=== PATIENT | male | born 1975 | race Caucasian/White ===

== ENCOUNTER → 2023-06-20 11:55 | Outpatient (CLI) | payer BC, SELFPAY ==
[2023-06-20 16:48] LABS: Basophils # 0.1 K/mm3 (0-0.2); Basophils % 0.7 % (0.1-2.0); Eosinophils # 0.2 K/mm3 (0.0-0.4); Eosinophils % 3.3 % (0.1-12.0); Hemoglobin 16.2 g/dL (14.1-18.0); Lymphocytes # 1.6 K/mm3 (0.7-4.5); Lymphocytes % 25.1 % (10-50); Mean Corpuscular HGB Conc 34.5 g/dL (31.8-35.4); Mean Corpuscular Hemoglobin 31.4 pg (27.0-31.2); Mean Platelet Volume 11.2 fl (7.4-10.4); Monocytes # 0.3 K/mm3 (0.1-1.0); Monocytes % 5.1 % (1.7-9.3); Neutrophils # 4.1 K/mm3 (1.8-7.8); Neutrophils % 65.8 % (37.0-80.0); Platelet Count 149 K/mm3 (142-424); Red Blood Count 5.17 M/mm3 (4.60-6.20); Red Cell Distribution Width 12.9 % (11.5-17.5); White Blood Count 6.3 K/mm3 (4.8-10.8)
[2023-06-20 16:53] LABS: Chloride 106 mmol/L (98-107); Sodium 141 mmol/L (136-145)
[2023-06-20 16:54] LABS: Potassium 4.1 mmoL/L (3.5-5.1)
[2023-06-20 16:56] LABS: Alanine Aminotransferase 37 U/L (12-78); Albumin Level 4.2 g/dl (3.5-5.0); Albumin/Globulin Ratio 1.4 (1.1-1.8); Alkaline Phosphatase 62 U/L (38-126); Anion Gap 14.1 mEq/L (5-15); Aspartate Amino Transferase 32 U/L (17-59); Bilirubin,Total 0.7 mg/dl (0.2-1.3); Blood Urea Nitrogen 13 mg/dl (9-20); Carbon Dioxide 25 mmol/L (22.0-30.0); Cholesterol 197 mg/dl (140-200); Estimated Glomerular Filt Rate 89 ml/min (>60); GFR (African American) 108 ML/MIN (>60); Total Protein,Serum 7.2 g/dl (6.3-8.2); Triglycerides 168 mg/dl (30-150); VLDL Cholesterol 34 mg/dL (0-40)
[2023-06-20 16:57] LABS: Calcium 9.4 mg/dl (8.4-10.2); Chol/HDL Ratio 6.2 (1-3.5); Glucose 224 mg/dl (74-100); HDL Cholesterol 32 mg/dl (40-60)
[2023-06-20 17:09] LABS: Direct LDL Cholesterol 129.95 mg/dL (100-129)
[2023-06-20 17:14] LABS: Free T4 (Free Thyroxine) 1.24 ng/dl (0.78-2.19); Triiodothryronine (T3) Uptake 32 % (23.5-40.5)
[2023-06-20 17:15] LABS: T4 (Thyroxine) 8.1 ug/dl (5.53-11.0)
[2023-06-20 17:25] LABS: Hemoglobin A1C 9.1 % (4.0-6.0)
[2023-06-20 17:28] LABS: Thyroid Stimulating Hormone 2.03 uIU/mL (0.465-4.68)
== END ==
PROVIDERS: PCP Nurse Practitioner Family; Visit Provider Nurse Practitioner Family
DX: Z00.00 Encounter for general adult medical examination without abnormal findings (principal)
CPT/HCPCS: 80053; 80061; 83036; 84436; 84439; 84443; 84479; 85025

== ENCOUNTER 2025-08-04 10:10 | Outpatient (CLI) | payer BC, SELFPAY ==
[2025-08-04 10:24] VITALS: BP 134/88; PULSE 91; RESP 18; TEMP 36.4; O2SAT 95; BMI 33.7
[2025-08-04 10:33] VITALS: BP 125/80; PULSE 80; RESP 14; O2SAT 99
[2025-08-04 10:42] VITALS: BP 134/88; PULSE 91; RESP 18; TEMP 36.4; O2SAT 95
[2025-08-04 10:55] VITALS: BP 134/88; PULSE 91; RESP 18; TEMP 36.4
== END 2025-08-04 10:58 | disposition left against medical advice (07) ==
LOC: ED.OUT 08-08 09:00
PROVIDERS: PCP Nurse Practitioner Family; Visit Provider Student in an Organized Health Care Education/Training Program
DX: M47.26 Other spondylosis with radiculopathy, lumbar region (principal)
CPT/HCPCS: 99283

== ENCOUNTER 2025-08-04 11:05 | Outpatient (CLI) | payer BC, SELFPAY ==
--- NOTE | 2025-08-04 11:08 | XR_ITS ---
FINAL REPORT CLINICAL HISTORY: sciatic back pain FINDINGS: SACROILIAC JOINTS Three views were obtained. There is no fracture or dislocation. The sacroiliac joints are intact. There is no evidence of sacroiliitis. The sacral arches are intact. No soft tissue abnormality is identified. IMPRESSION: No acute process. Reviewed, Interpreted and Dictated by Steve Kemp MD Transcribed by Jaelyn Stringer Authenticated and . [facility]
--- NOTE | 2025-08-04 11:08 | XR_ITS ---
FINAL REPORT CLINICAL HISTORY: sciatic back pain FINDINGS: LUMBAR SPINE Five views were obtained. There is no acute fracture. The disc spaces are well-preserved. There is mild anterior osteophyte formation at L3-4, L4-5, and L5-S1. There is moderate facet sclerosis in the lower lumbar spine. There is no malalignment. IMPRESSION: Degenerative changes as above. Reviewed, Interpreted and Dictated by Steve Kemp MD Transcribed by Jaelyn Stringer Authenticated and [facility]
== END 2025-08-04 23:59 | disposition home or self-care (01) ==
LOC: RAD 11:06
PROVIDERS: PCP Nurse Practitioner Family; Visit Provider Nurse Practitioner Family
DX: M47.26 Other spondylosis with radiculopathy, lumbar region (principal)
CPT/HCPCS: 72110; 72202

== ENCOUNTER 2025-08-16 09:36 | Outpatient (CLI) | payer BC, SELFPAY ==
--- OUTSIDE RECORDS SUMMARY | 2025-08-16 09:38 | XMS_ITS | Clinical Summary ---
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 21 capsule 06/17/2017 Active Immunizations Immunization Administration Dates Next Due Tdap 06/17/2017 Social History Tobacco Use Types Packs/Day Years Used Date Smoking Tobacco: Never Alcohol Use Standard Drinks/Week Comments No 0 (1 standard drink = 0.6 oz pur e alcohol) Abuse Screen Answer Date Recorded Unsafe at Home or Work/School Not on file Feels Threatened by Someone? Not on file 04/2023 Does Anyone Keep You from Co ntacting Others or Doint Things Outside the Home? Not on file 06/02/2023 Physical Sign of Abuse Present Not on file 1 Housing Stability Answer Date Recorded Current Living Arrangements Not on file 04/2023 Potentially Unsafe Housing Conditions Not on aubrie e 06/02/2023 Family and Community Support Answer Lambert e Recorded Help with Day-to-Day Activities Not on file 06/02/2023 Lonely or Isolated Not on file 06/02/2023 Employment Answer Date Recorded Do you want help finding or keeping work or a charisse b? Not on file 06/02/2023 Disabilities Answer Date Recorded Concentrating, Remembering, or Making Decisions Difficulty Not on file 06/02/2023 Doing Errands Independently Difficulty Not on fi le 06/02/2023 Education Answer Date Recorded Help with school or training? Not on file Preferred Language Not on file 06/02/2023 Sex and Gender Information Value Date Recorded Sex Assigned at Not on file Legal Sex Male 11:56 AM EDT Gender Identity Not on file Sexual Orientation Not on file Last Filed Vital Signs Vital Sign Reading Time Taken Comments Blood Pressure 120/81 06/17/2017 11:11 AM EDT Pulse 76 06/17/2017 11:11 AM EDT Temperature 37.1 C (98.8 F) 06/17/2017 11:11 AM EDT Respiratory Rate 15 06/17/2017 11:11 AM EDT Oxygen Saturation 96% 06/17/2017 11:11 AM EDT Inhaled Oxygen Concentration - - Weight 125 kg (275 lb) 06/17/2017 11:11 AM EDT Height 188 cm (6' 2 ) 06/17/2017 11:11 AM EDT Body Mass Index 35.31 06/17/2017 11:11 AM EDT Plan of Treatment Health Maintenance Due Date Last Done Comments ANNUAL PHYSICAL 1973 HEPATITIS C SCREENING 1973 COLOGUARD 2018 COLON CANCER SCREENING 5 YEAR SIGMOIDOSCOPY 2018 COLONOSCOPY 2018 COLORECTAL CANCER SCREENING 2018 CT COLONOGRAPHY 2018 FECAL OCCULT BLOOD TEST 2018 FIT Testing (1 year) 2018 Pneumococcal Vaccine 50+ (1 of 1 - PCV) 2023 ZOSTER VACCINE (1 of 2) 2023 INFLUENZA VACCINE 03/25/2025 TDAP/TD VACCINES (2 - Td or Tdap) 06/17/[address]27 [address] [place] [address] [address] [employer] 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
--- NOTE | 2025-08-16 09:45 | MR_ITS ---
FINAL REPORT TECHNIQUE: Multiplanar MR without contrast CLINICAL HISTORY: right sciatic pain FINDINGS: Sagittal images show normal vertebral height. Alignment is normal. Marrow signal pattern is unremarkable. T12-L1: Unremarkable L1-2: Unremarkable L2-3: Unremarkable L3-4: Minimal annular disc bulge and facet arthropathy. L4-5: Mild annular disc bulge and facet arthropathy. Mild central canal stenosis. L5-S1: Moderate right paracentral disc protrusion mildly compressing the right S1 nerve root. IMPRESSION: Moderate right paracentral disc protrusion at L5-S1 mildly compresses the right S1 nerve root. Reviewed, Interpreted and Dictated by Jillian Nice MD Transcribed by Jaelyn Stringer Authenticated and [facility]
== END 2025-08-16 23:59 | disposition home or self-care (01) ==
LOC: RAD 09:37
PROVIDERS: PCP Nurse Practitioner Family; Visit Provider Nurse Practitioner Family
DX: M51.17 Intervertebral disc disorders with radiculopathy, lumbosacral region (principal); M47.816 Spondylosis without myelopathy or radiculopathy, lumbar region
CPT/HCPCS: 72148